=== PATIENT | female | born 1975 | race American Indian/Alaskan Native ===

== ENCOUNTER 2017-01-14 00:49 | Emergency (ER) | payer SELFPAY ==
[2017-01-14 00:50] VITALS: BMI 23.1
[2017-01-14 01:06] VITALS: TEMP 97.9; O2SAT 100
[2017-01-14] MEDS ORDERED: Sodium Chloride 0.9% 1,000 ML IV STA (01:10)
--- NOTE | 2017-01-14 01:16 | ED PDOC ---
Arrival/HPI - General Chief Complaint: Medical Clearance Time Seen by Provider: 01/14/17 01:05 Historian: Patient - History of Present Illness Narrative History of Present Illness (Text): 01/14/17 01:10 A 42 year old female, whose past medical history includes sickle cell trait and iron deficiency, presents to the emergency department complaining of general weakness for 1 day. Patient reports having iron deficiency and mentions she has not had any transfusions. pt states she just restarted her iron. Patient denies any heavy period, stool changes, blood instool chest pain, sob, albert, any pain, or any other complaints. 01/14/17 02:31 Time/Duration: 24 hours Symptom Onset: Sudden Symptom Course: Unchanged Activities at Onset: Rest, Light Context: Home Past Medical History - Provider Review Nursing Documentation Reviewed: Yes - Cardiac Hx Cardiac Disorders: No - Pulmonary Hx Respiratory Disorders: No - Neurological Hx Neurological Disorder: Yes Hx Seizures: Yes - HEENT Hx HEENT Disorder: No - Renal Hx Renal Disorder: No - Endocrine/Metabolic Hx Endocrine Disorders: No - Hematological/Oncological Hx Blood Disorders: Yes Hx Anemia: Yes (Low Iron) Hx Sickle Cell Trait: Yes - Integumentary Hx Dermatological Disorder: No - Musculoskeletal/Rheumatological Hx Musculoskeletal Disorders: No - Gastrointestinal Hx Gastrointestinal Disorders: No - Genitourinary/Gynecological Hx Genitourinary Disorders: No - Psychiatric Hx Depression: No Hx Emotional Abuse: No Hx Physical Abuse: No Hx Substance Use: No - Anesthesia Hx Anesthesia: No - Suicidal Assessment Feels Threatened In Home Enviroment: No Family/Social History - Physician Review Nursing Documentation Reviewed: Yes Family/Social History: No Known Family HX Smoking Status: Never Smoked Hx Alcohol Use: Yes Frequency of alcohol use: Socially Hx Substance Use: No Hx Substance Use Treatment: No Allergies/Home Meds Allergies/Adverse Reactions: Allergies No Known Allergies Allergy (Verified 03/26/12 01:05) Home Medications: Home Meds Medication Instructions Recorded Confirmed No Known Home Med 03/26/12 01/14/17 Review of Systems - Physician Review All systems were reviewed & negative as marked: Yes - Review of Systems Constitutional: Other (general weakness). absent: Fevers, Night Sweats Respiratory: absent: SOB, Cough Cardiovascular: absent: Chest Pain Gastrointestinal: absent: Abdominal Pain, Diarrhea, Nausea, Vomiting Genitourinary Female: absent: Urine Output Changes, Vaginal Bleeding (period) Neurological: absent: Headache, Dizziness Hemo/Lymphatic: Other (iron deficiency) Physical Exam Vital Signs Reviewed: Yes Vital Signs Temp Pulse Resp BP Pulse Ox 01/14/17 02:35 63 17 123/87 100 01/14/17 01:02 97.9 F 70 18 138/95 H 100 Temperature: Afebrile Blood Pressure: Normal Pulse: Regular Respiratory Rate: Normal Appearance: Positive for: Well-Appearing Pain Distress: None Mental Status: Positive for: Alert and Oriented X 3 - Systems Exam Head: Present: Atraumatic, Normocephalic Pupils: Present: PERRL Extroacular Muscles: Present: EOMI Conjunctiva: Present: Other (mild palor) Mouth: Present: Moist Mucous Membranes Neck: Present: Normal Range of Motion Respiratory/Chest: Present: Clear to Auscultation, Good Air Exchange. No: Respiratory Distress, Accessory Muscle Use Cardiovascular: Present: Regular Rate and Rhythm, Normal S1, S2. No: Murmurs Abdomen: Present: Normal Bowel Sounds. No: Tenderness, Distention, Peritoneal Signs Back: Present: Normal Inspection Upper Extremity: Present: Normal Inspection. No: Cyanosis, Edema Lower Extremity: Present: Normal Inspection. No: Edema Neurological: Present: GCS=15, CN II-XII Intact, Speech Normal Skin: Present: Warm, Dry, Normal Color. No: Rashes Psychiatric: Present: Alert, Oriented x 3, Normal Insight, Normal Concentration Medical Decision Making ED Course and Treatment: 01/14/17 01:16 Impression: 42 year old female with general weakness and iron deficiency. Normal physical exam. r/o anmiea Plan: -- Urinalysis -- Labs -- IV Fluids -- Reassess and disposition Progress Notes: 01/14/17 02:30 noted mild anemia. discussed risk benefit of blood transfusion with pt. pt declines blood transfusion. prefers to continue iron therapy and outpt f/u. pt sleeping throughout ed stay in nad. states feels well for d/c. advised to continue iron and see specialist. return precautions advised. - Lab Interpretations Lab Results: 01/14/17 01:40 01/14/17 01:40 Lab Results 01/14/17 02:15: Urine Color Yellow, Urine Appearance Slight-cloudy, Urine pH 6.0 , Ur Specific [place] 1.020, Urine Protein Negative, Urine Glucose (UA) Negative , Urine Ketones Negative, Urine Blood Large H, Urine Nitrate Negative, Urine Bilirubin Negative, Urine Urobilinogen 0.2, Ur Leukocyte Esterase Negative, Urine RBC 5 - 10, Urine WBC 0 - 2, Urine Bacteria Few 01/14/17 01:40: Urine HCG, Qual Negative 01/14/17 01:40: Sodium 136, Potassium 3.8, Chloride 98, Carbon Dioxide 28, Anion Gap 14, BUN 12, Creatinine 0.7, Est GFR ( Amer) > 60, Est GFR (Non- Af Amer) > 60, Random Glucose 82, Calcium 9.4, Total Bilirubin 0.7, AST 42 H, ALT 37, Alkaline Phosphatase 47, Total Protein 7.6, Albumin 4.4, Globulin 3.3, Albumin/Globulin Ratio 1.3 01/14/17 01:40: PT 10.6, INR 0.98, APTT 27.2 01/14/17 01:40: WBC 5.9, RBC 4.50, Hgb 10.5 L, Hct 32.5 L, MCV 72.2 L, MCH 23.3 L, MCHC 32.3, RDW 17.3 H, Plt Count 307, MPV 9.5, Gran % 53.5, Lymph % (Auto) 35.6 H, Dewitt % (Auto) 8.5 H, Eos % (Auto) 2.1, Baso % (Auto) 0.3, Gran # 3.13, Lymph # 2.1, Dewitt # 0.5, Eos # 0.1, Baso # 0.02 I have reviewed the lab results: Yes - Medication Orders Current Medication Orders: Discontinued Medications Sodium Chloride (Sodium Chloride 0.9%) 1,000 mls @ 999 mls/hr IV .[id number] STA Stop: 01/14/17 02:10 Last Admin: 01/14/17 01:43 Dose: 999 mls/hr - Scribe Statement The provider has reviewed the documentation as recorded by the Mae Leija Provider Scribe Attestation: All medical record entries made by the Scribe were at my direction and personally dictated by me. I have reviewed the chart and agree that the record accurately reflects my personal performance of the history, physical exam, medical decision making, and the department course for this patient. I have also personally directed, reviewed, and agree with the discharge instructions and disposition. Disposition/Present on Arrival - Present on Arrival Any Indicators Present on Arrival: No History of DVT/PE: No History of Uncontrolled Diabetes: No Urinary Catheter: No History of Decub. Ulcer: No History Surgical Site Infection Following: None - Disposition Have Diagnosis and Disposition been Completed?: Yes Diagnosis: Weakness, Anemia Disposition: HOME/ ROUTINE Disposition Time: 02:30 Condition: STABLE Discharge Instructions (ExitCare): Weakness (ED), Anemia (ED) Additional Instructions: please follow up with your doctor. and specialsit. return to er with worsening symptoms or concerns. Referrals: [facility] [employer] [facility] [Outside] - Follow up with primary [employer] [employer] [facility] [Outside] - Follow up with primary [facility] [Outside] - Follow up with primary [employer] [Outside] - Follow up with primary Enmanuel Funk MD [Medical Doctor] - Follow up with primary Forms: [employer] (Malagasy)
[2017-01-14 01:49] LABS: BASO # 0.02 K/mm3 (0.0-2.0); BASO % 0.3 % (0.0-3.0); EOS # 0.1 (0.0-0.7); EOS % 2.1 % (1.5-5.0); GRAN # 3.13 (1.4-6.5); GRAN % 53.5 % (50.0-68.0); HEMOGLOBIN 10.5 g/dL (12.0-16.0); LYMPH # 2.1 (1.2-3.4); LYMPH % 35.6 % (22.0-35.0); MEAN CORPUSCULAR HEMOGLOBIN 23.3 pg (25.0-35.0); MEAN CORPUSCULAR HGB CONC 32.3 g/dl (31.0-37.0); MEAN PLATELET VOLUME 9.5 fl (7.0-11.0); MONO # 0.5 (0.1-0.6); MONO % 8.5 % (1.0-6.0); PLATELET COUNT 307 10^3/uL (120.0-450.0); RED CELL DISTRIBUTION WIDTH 17.3 % (11.5-14.5); WHITE BLOOD COUNT 5.9 10^3/ul (4.5-11.0)
[2017-01-14 01:51] LABS: MEAN CELL VOLUME 72.2 fl (80.0-105.0)
[2017-01-14 01:57] LABS: INR 0.98 (0.93-1.08); PARTIAL THROMBOPLASTIN TIME 27.2 Seconds (23.7-30.8); PROTHROMBIN TIME 10.6 Seconds (9.9-11.8)
[2017-01-14 02:00] LABS: ALB/GLOB RATIO 1.3 (1.1-1.8); ALBUMIN 4.4 g/dL (3.0-4.8); ALT/SGPT 37 U/L (7-56); AST/SGOT 42 U/L (15-39); BLOOD UREA NITROGEN 12 mg/dL (7-21); CALCIUM 9.4 mg/dL (8.4-10.5); GFR AFRICAN-AMERICAN > 60; GFR NON-AFRICAN AMERICAN > 60
[2017-01-14 02:21] LABS: URINE BILIRUBIN NEGATIVE (NEGATIVE); URINE BLOOD LARGE (NEGATIVE); URINE GLUCOSE (UA) NEGATIVE (NEGATIVE); URINE LEUKOCYTE ESTERASE NEGATIVE Leu/uL (NEGATIVE); URINE NITRATE NEGATIVE (NEGATIVE); URINE PROTEIN NEGATIVE mg/dL (<30 mg/dL); URINE UROBILINOGEN 0.2 E.U./dL (<1 E.U./dL)
[2017-01-14 02:22] LABS: URINE APPEARANCE SLIGHT-CLOUDY (CLEAR); URINE COLOR YELLOW (YELLOW)
[2017-01-14 02:36] VITALS: BP 123/87; PULSE 63; RESP 17
[2017-01-14 02:36] LABS: URINE BACTERIA FEW (NEG); URINE WBC 0 - 2 /hpf (0-6)
== END 2017-01-14 02:40 | disposition home or self-care (01) ==
LOC: ED 00:49
DX: D64.9 Anemia, unspecified (principal); R53.1 Weakness
CPT/HCPCS: 80053; 81001; 84703; 85025; 85610; 85730; 96360; 99282; J7040